=== PATIENT | male | born 1970 | race Caucasian/White ===

== ENCOUNTER 2018-02-26 20:11 | Emergency (ER) | payer BC ==
[2018-02-26 20:31] LABS: #Basophils 0.1 thou/uL (0.0-0.2); #Eosinphils 0.3 thou/uL (0.0-0.7); #Lymphocytes 3.3 thou/uL (1.20-3.40); #Monocytes 0.8 thou/uL (0.11-0.59); %Basophils 0.9 % (0.0-1.0); %Eosinophils 2.6 % (0.0-10.0); %Lymphocytes 31.8 % (21.0-51.0); %Monocytes 7.7 % (0.0-10.0); Hemoglobin 16.3 g/dL (14.0-18.0); Mean Corpuscular HGB CONC 34.2 g/dL (32.0-36.0); Mean Corpuscular Hemoglobin 31.7 pg (27.0-31.0); Mean Corpuscular Volume 92.7 fl (80.0-94.0); Mean Platelet Volume 6.8 fL (7.4-10.4); Platelet Count 245 thou/uL (130-400); RBC Distribution Width 11.7 % (11.5-14.5); Red Blood Cell (RBC) Count 5.13 mill/uL (4.70-6.10); White Blood Cell (WBC) Count 10.5 thou/uL (4.8-10.8)
--- NOTE | 2018-02-26 20:39 | RAD ---
CHEST ONE VIEW 02/26/18 HISTORY: Syncope. COMPARISON: None. FINDINGS: No evidence of hypoinflated vascular crowding. No focal air space consolidation, pneumothorax or effu kiran. IMPRESSION: No acute intrathoracic abnormality. POS: [facility]
[2018-02-26 20:42] LABS: ALT (SGPT) 104 U/L (8-55); AST (SGOT) 73 U/L (5-34); Albumin 4.8 g/dL (3.5-5.0); Alkaline Phosphatase 22 U/L (40-150); Anion Gap 20 mmol/L (10-20); BUN (Urea Nitrogen) 12 mg/dL (8.9-20.6); Bilirubin, Total 0.6 mg/dL (0.2-1.2); Calc. Creatinine Clearance 0 mL/min (70-130); Calcium 9.8 mg/dL (7.8-10.44); Carbon Dioxide 21 mmol/L (22-29); Chloride 104 mmol/L (98-107); Estimated GFR-MDRD 61; Globulin 2.7 g/dL (2.4-3.5); Glucose 144 mg/dL (70-105); Potassium 3.7 mmol/L (3.5-5.1); Protein, Total 7.5 g/dL (6.0-8.3); Sodium 141 mmol/L (136-145)
[2018-02-26 20:53] LABS: Acetaminophen Less than 6.0 mcg/mL (10.0-30.0); Alcohol 310 mg/dL (Less than 10); CK (CPK) 198 U/L (30-200); Salicylate Less than 8.0 mg/dL (15.0-30.0)
[2018-02-26 20:58] LABS: CKMB 0.8 ng/mL (0-6.6); Troponin I Less than 0.010 ng/mL (< 0.028)
--- NOTE | 2018-02-26 22:36 | CT ---
CT BRAIN WITHOUT CONTRAST 02/26/18 HISTORY: Altered mental status. COMPARISON: None. FINDINGS: No hemorrhage or infarct. No midline shift or mass effect. Ventricular size and extra-axial CSF space s are normal. Mild mucosal thickening in the left maxillary sinus. IMPRESSION: No acute intracranial abnormality. POS: [facility]
[2018-02-26 23:50] LABS: Bilirubin Negative (Negative); Blood, Urine Negative (Negative); Clarity CLEAR (Clear); Glucose, Urine (Dipstick) Negative (Negative); Leukocyte Negative (Negative); Nitrite Negative (Negative); Protein, Urine (Dipstick) Negative (Neg-Trace); Specific Gravity, Urine 1.004 (1.002-1.036)
[2018-02-26 23:59] LABS: Amphetamine Not Detected (NotDetected); Barbiturates Screen Not Detected (NotDetected); Benzodiazepine Screen Not Detected (NotDetected); Cocaine Metabolite Screen Not Detected (NotDetected); Medtox Control Line Valid? VALID (VALID); Medtox Reader # READER 1; Methadone Not Detected (NotDetected); Methamphetamine Not Detected (NotDetected); Opiate Screen Not Detected (NotDetected); Oxycodone Screen Not Detected (NotDetected); Phencyclidine (PCP) Not Detected (NotDetected); THC/Cannabinoid Screen Not Detected (NotDetected); Tricyclic Screen Not Detected (NotDetected)
== END 2018-02-27 00:16 | disposition home or self-care (01) ==
LOC: ERS 20:11
DX: F10.129 Alcohol abuse with intoxication, unspecified (principal); Y90.8 Blood alcohol level of 240 mg/100 ml or more; R55 Syncope and collapse; R18.8 Other ascites; F17.220 Nicotine dependence, chewing tobacco, uncomplicated; E03.9 Hypothyroidism, unspecified; Z79.899 Other long term (current) drug therapy
CPT/HCPCS: 36416; 70450; 71045; 80053; 80306; 80307; 81003; 82553; 84443; 84484; 85025; 93005; 96360; 96361

== ENCOUNTER 2018-09-06 07:35 | Outpatient (CLI) | payer BC ==
--- NOTE | 2018-09-06 09:07 | ULT ---
ULTRASOUND ABDOMEN: History: Elevated LFTs. Comparison: None. Technique: Real-time grayscale and color evaluation of the abdomen was performed. FINDINGS: Visualized portion of the aorta and IVC, and pancreas are unremarkable. Diffuse increased hepatic ech otexture. Liver measures 15.9 cm in length. Gallbladder is normal. No pericholecystic fluid. Common bile duct measures 4 mm, normal. Sonographic Maciel's sign is negative. No cholelithiasis. Right kidney measures 10.7 x 5.4 x 5.7 cm without mass, hydronephrosis or abnormal calcifications. Th e spleen measures 10.7 cm in length. Left kidney measures 10.8 x 5.5 x 5.5 cm without mass, hydroneph rosis, or abdominal calcifications. IMPRESSION: Diffuse increased hepatic echotexture suggesting steatosis. No gallbladder pathology. POS: [facility]
== END 2018-09-06 07:36 | disposition home or self-care (01) ==
LOC: BICULT 07:35
PROVIDERS: ATTEND Family Medicine
DX: R74.8 Abnormal levels of other serum enzymes (principal); R93.2 Abnormal findings on diagnostic imaging of liver and biliary tract
CPT/HCPCS: 76700

== ENCOUNTER 2022-10-28 15:10 | Outpatient (CLI) | payer BC | END 2022-10-28 15:11 | disposition home or self-care (01) | LOC: BICRAD 15:10 | PROVIDERS: ATTEND Family Medicine | DX: M25.511 Pain in right shoulder (principal) ==